=== PATIENT | male | born 1955 | race Caucasian/White ===

== ENCOUNTER 2017-06-23 12:20 | Inpatient (IN) | payer OTHER ==
[~2017-06-23] VITALS: Ht 167.6 cm; Wt 83.0 kg
[2017-06-23 13:02] LABS: CALCIUM 8.9 mg/dL (8.5-10.1); CARBON DIOXIDE 27.4 mmol/L (21-32); CHLORIDE SERUM 111 mmol/L (98-107); CREATININE SERUM 0.8 mg/dL (0.7-1.3); GFR1 > 60 mL/min; GLUCOSE SERUM 80 mg/dL (74-106); POTASSIUM SERUM 3.9 mmol/L (3.5-5.1); SODIUM SERUM 145 mmol/L (136-145)
[2017-06-23 13:07] LABS: ALBUMIN 3.6 g/dL (3.4-5.0); ALKALINE PHOSPHATASE 93 U/L (46-116); ALT/SGPT 21 U/L (16-63); AST/SGOT 30 U/L (15-37); BILIRUBIN TOTAL 0.7 mg/dL (0.20-1.00); TOTAL PROTEIN, SERUM 7.4 g/dL (6.4-8.2)
[2017-06-23 13:18] LABS: BASOPHIL % 0.4 % (0-2); PLATELET COUNT 210 x10^3mcL (130-400)
[2017-06-23 13:28] LABS: RED CELL DISTRIBUTION WIDTH 15.2 % (11.5-14.5)
[2017-06-23] MEDS ORDERED: ZYPREXA10 M1 PO (14:15)
[2017-06-23] MEDS ORDERED: ALBUTEROL SULFAT0.51 NEB (14:16)
[2017-06-23] MEDS ORDERED: ROBAXIN500 MG PO (14:16)
[2017-06-23 15:01] LABS: MAGNESIUM 1.6 mg/dL (1.8-2.4); PHOSPHOROUS 2.9 mg/dL (2.5-4.9)
[2017-06-23 15:10] LABS: FREE THYROXINE INDEX 2.6 ug/dL (1.4-4.5); T4(THYROXINE) 7.3 ug/dL (4.7-13.3)
[2017-06-23 15:12] LABS: T3 TOTAL 0.96 ng/mL
[2017-06-23 15:31] LABS: FREE T4 0.98 ng/dL (0.76-1.46)
[2017-06-23 16:05] VITALS: BP 144/98
[2017-06-23 16:15] VITALS: Ht 167.6 cm; Wt 83.0 kg
[2017-06-23 18:16] LABS: microscopic required? NO
[2017-06-23 18:39] LABS: UA SPECIFIC GRAVITY <=1.005 (1.005-1.035); urine erythrocyte NEGATIVE (NEGATIVE)
[2017-06-23 18:50] LABS: AMPHETAMINE QUAL UR NONE DETECTED (NEG <=1000)
[2017-06-23 21:15] VITALS: BP 136/87
[2017-06-24 04:43] LABS: BASOPHIL % 0.6 % (0-2); PLATELET COUNT 197 x10^3mcL (130-400)
[2017-06-24 04:44] LABS: RED CELL DISTRIBUTION WIDTH 15.3 % (11.5-14.5)
[2017-06-24 04:52] LABS: CALCIUM 8.5 mg/dL (8.5-10.1); CARBON DIOXIDE 27.1 mmol/L (21-32); CHLORIDE SERUM 112 mmol/L (98-107); CREATININE SERUM 0.9 mg/dL (0.7-1.3); GFR1 > 60 mL/min; GLUCOSE SERUM 93 mg/dL (74-106); POTASSIUM SERUM 4.2 mmol/L (3.5-5.1); SODIUM SERUM 145 mmol/L (136-145)
[2017-06-24 04:56] LABS: MAGNESIUM 1.6 mg/dL (1.8-2.4); PHOSPHOROUS 3.9 mg/dL (2.5-4.9)
[2017-06-24 05:52] VITALS: BP 140/89
[2017-06-24 13:45] VITALS: BP 147/92
[2017-06-24 17:50] VITALS: BP 133/87
[2017-06-24 21:31] VITALS: BP 145/90
[2017-06-25 05:06] VITALS: BP 134/90
[2017-06-25 08:15] VITALS: BP 140/98
[2017-06-25 18:04] VITALS: BP 142/81
[2017-06-25] MEDS ORDERED: RXMED NS (21:35)
[2017-06-25 22:09] VITALS: BP 142/81
== END 2017-06-25 23:00 | DRG 206 ==
LOC: ED 12:20 → DU 13:59 → MU 13:59 → DU 15:58 → MU 06-24 17:17
PROVIDERS: Emergency Medicine; ADMIT Family Medicine
DX: M94.0 Chondrocostal junction syndrome [Tietze] (principal); F31.2 Bipolar disorder, current episode manic severe with psychotic features; I07.1 Rheumatic tricuspid insufficiency; E83.42 Hypomagnesemia; E89.0 Postprocedural hypothyroidism; F12.10 Cannabis abuse, uncomplicated; F11.21 Opioid dependence, in remission; J45.909 Unspecified asthma, uncomplicated; Z68.29 Body mass index [BMI] 29.0-29.9, adult; Z85.850 Personal history of malignant neoplasm of thyroid
CPT/HCPCS: 83880; 84439; 85378; J3475; J3490; J7030; Q0092